=== PATIENT | female | born 1990 ===

== ENCOUNTER 2021-11-27 10:25 | Outpatient (REF) | payer SELFPAY ==
--- NOTE | 2021-11-27 11:47 | MHC.AU.HAS ---
Hearing Aid Evaluation Date of Visit: 11/27/21 Historical Information: Description of Hearing: Mild sensorineural hearing loss 250, 500, and 9063-6116 Hz with normal to borderline normal hearing levels 7019-9414 Hz, bilaterally. Current personal amplification information, if applicable: NONE Summary: Talia is working with [facility] because she is having significant communication difficulty at both work and her daily life. She was provided a set of Demonstration Hearing Aids when seen at this office on 10/14/2021 for a hearing evaluation. She comes in today for a follow-up reporting the aids are providing great benefit and she would like to move forward to get [facility] approval for aids. Hearing Aid Prescription: Based on the individual?s shared listening needs, communication environments, dexterity, desire for connectivity, and personal preferences, the following prescription for amplification has been made: Right ear: [place]: PhonAnimoca Model: Atlantis Computingeo P 70-13T Battery Size: 13 Color: [place] [employer] [facility]: #1 Medium Type of Dome: Small Open Left ear: [place]: Phonak Model: Atlantis Computingeo P 70-13T Battery Size: 13 Color: [place] [employer] [facility]: #1 Medium Type of Dome: Small Open Plan of Care: Patient wishes to purchase hearing aids as prescribed Action Taken/Action Needed: Prior authorization to be requested from [facility] Hearing Instrument Fitting to be scheduled when materials arrive Primary Diagnosis: H90.3 Bilateral Sensorineural Hearing Loss Signature: Provider: Kaushal Liang, [facility]
== END 2021-11-27 10:26 | disposition home or self-care (01) ==
LOC: HO.HAP 10:25
PROVIDERS: Visit Provider Registered Nurse
DX: Z13.89 Encounter for screening for other disorder (principal)

== ENCOUNTER 2022-01-11 09:10 | Outpatient (REF) | payer SELFPAY ==
--- NOTE | 2022-01-11 10:41 | MHC.AU.HFA ---
Hearing Instrument Fitting- Adult- Binaural Date of Visit: 01/11/22 Hearing Instruments Dispensed: Right Ear: Web Machine Tender: Phonak Model: Audeo P 70-13T Serial Number: [id number] Repair Warranty: 03/24/2025 Loss and Damage Warranty: 03/24/2025 Battery Size: 13 Color: [place] Brown Comb Setter: #1 Medium Type of Dome: Small Open Type of Wax Guard: CeruShield Left Ear: Web Machine Tender: Phonak Model: Audeo P 70-13T Serial Number: [id number] Repair Warranty: 03/24/2025 Loss and Damage Warranty: 03/24/2025 Battery Size: 13 Color: [place] Brown Comb Setter: #1 Medium Type of Dome: Small Open Type of Wax Guard: CeruShield Summary of Fitting: Patient has been very pleased with the DEMO aids fit 10/14/2021. Only changes she wants made is to increase the volume as she consistently increases the volume one step every day and she wants the aids paired with her cell phone. Fit the new aids transferring the 10/14/2021 settings, re-ran feedback test, and increased overall gain and MPO 3 dB. Paired cell phone to aids. Patient does not want the Flazio phillip at this time. Recommendations:Hearing instrument care and maintenance were discussed and practiced. See handouts for care/use instructions and battery information. The instrument(s) were paired to the patient's smartphone. Patient does not feel follow-up is necessary at this time.Please call our clinic with any questions or concerns. Diagnosis Code(s): Primary Diagnosis: H90.3 Bilateral Sensorineural Hearing Loss Services Performed: [facility] Product Codes: BTE-Binaural- Level 3 Signature:Provider: Kaushal Liang, [facility]
== END 2022-01-11 09:11 | disposition home or self-care (01) ==
LOC: HO.HAP 09:10
PROVIDERS: Visit Provider Registered Nurse
DX: Z46.1 Encounter for fitting and adjustment of hearing aid (principal); H90.3 Sensorineural hearing loss, bilateral
CPT/HCPCS: V5261